=== PATIENT | female | born 1990 | race Two or more races ===

== ENCOUNTER → 2018-02-19 | Emergency (ER) | payer OTHER ==
[~2018-02-19] VITALS: Ht 157.5 cm; Wt 63.5 kg
[~2018-02-19] MED LIST: KETO10TA2 PO; VISTARIL25 MG PO
== END | disposition home or self-care (01) ==
LOC: ER 02:30
DX: R07.89 Other chest pain (principal); F06.4 Anxiety disorder due to known physiological condition

== ENCOUNTER 2018-06-16 20:27 | Emergency (ER) | payer OTHER ==
[~2018-06-16] VITALS: Ht 157.5 cm; Wt 59.0 kg
[2018-06-16] MEDS ORDERED: ZOLOFT20 MG/1 ML (21:11)
[2018-06-16] MEDS ORDERED: BUPROPION XL150 MG (21:11)
== END 2018-06-19 17:29 | disposition designated cancer center or children's hospital (05) ==
LOC: ER 20:27
DX: T43.222A Poisoning by selective serotonin reuptake inhibitors, intentional self-harm, initial encounter (principal); F41.8 Other specified anxiety disorders; G80.8 Other cerebral palsy; R45.851 Suicidal ideations

== ENCOUNTER 2018-07-03 12:53 | Emergency (ER) | payer OTHER ==
[~2018-07-03] VITALS: Ht 157.5 cm; Wt 58.1 kg
[~2018-07-03 12:53] MED LIST changes: +BUPROPION XL150 MG; +ZOLOFT20 MG/1 ML
== END 2018-07-03 18:15 | disposition home or self-care (01) ==
LOC: ER 12:53
DX: R19.7 Diarrhea, unspecified (principal); R10.13 Epigastric pain

== ENCOUNTER 2019-06-03 10:23 | Outpatient (CLI) | payer OTHER | END 2019-06-03 10:34 | disposition home or self-care (01) | LOC: LAB 10:23 | DX: K59.09 Other constipation (principal) ==